=== PATIENT | male | born 1990 | race African-American/Black ===

== ENCOUNTER 2022-11-04 14:27 | Emergency (ER) | payer BC ==
[2022-11-04] MEDS ORDERED: Lidocaine 1% 10 ML MDV INJECT ONE (14:44)
[2022-11-04 16:05] VITALS: BP 151/97; PULSE 56
== END 2022-11-04 16:05 | disposition home or self-care (01) ==
LOC: JD.ED 14:27
DX: S61.412A Laceration without foreign body of left hand, initial encounter (principal); Z79.899 Other long term (current) drug therapy; W26.0XXA Contact with knife, initial encounter; Y92.009 Unspecified place in unspecified non-institutional (private) residence as the place of occurrence of the external cause
CPT/HCPCS: 12001; 99283; J3490

== ENCOUNTER 2024-03-04 17:58 | Emergency (ER) | payer BC ==
[2024-03-04 18:38] VITALS: BP 162/124; PULSE 98
[2024-03-04] MEDS: Erythromycin Base 0.5% Ophth Oint 1 GM Tube EYEBOTH ONE (20:14)
[2024-03-04 20:41] LABS: CORONAVIRUS COVID-19 NAA NEGATIVE (NEGATIVE); INFLUENZA A NAA NEGATIVE (NEGATIVE); RESPIRATORY SYNCYTIAL VIR NAA NEGATIVE (NEGATIVE)
== END 2024-03-04 20:13 | disposition home or self-care (01) ==
LOC: JD.ED 17:58
DX: H10.9 Unspecified conjunctivitis (principal); Z86.16 Personal history of COVID-19
CPT/HCPCS: 0241U; 99283; A9270